=== PATIENT | female | born 1965 | race Caucasian/White ===

== ENCOUNTER 2020-04-22 08:14 | Outpatient (CLI) | payer OTHER ==
--- NOTE | 2020-04-22 09:17 | BD ---
DEXA BONE DENSITY STUDY: Date: 04/22/2020 HISTORY: Postmenopausal. FINDINGS: Lumbar Spine: BMD (g/cm2) L1 1.023 T-Score: +0.3 L2 1.173 T-Score: +1.3 L3 1.164 T-Score: +0.7 L4 1.210 T-Score: +1.3 Total 1.146 T-Score: +0.9 Left Femoral Neck: 0.820 T-Score: -0.2 Total Femur: 1.017 T-Score: +0.6 IMPRESSION: Normal bone mineral density of the lumbar spine and left femoral neck. POS: OFF
== END 2020-04-22 08:15 | disposition home or self-care (01) ==
LOC: BICMAMMO 08:14
PROVIDERS: ATTEND Obstetrics & Gynecology
DX: Z13.820 Encounter for screening for osteoporosis (principal)
CPT/HCPCS: 77080

== ENCOUNTER 2023-03-21 13:29 | Outpatient (CLI) | payer OTHER | END 2023-03-21 13:30 | disposition home or self-care (01) | LOC: BICMAMMO 13:29 | PROVIDERS: ATTEND Nurse Practitioner Family | DX: R92.1 Mammographic calcification found on diagnostic imaging of breast (principal) | CPT/HCPCS: G0279 ==

== ENCOUNTER → 2023-04-18 | Day surgery (SDC) | payer BC | LOC: MAMMO 07:07 | PROVIDERS: ATTEND Nurse Practitioner Family | PROC: 0H95XZX Drainage of Chest Skin, External Approach, Diagnostic (ICD-10-PCS; principal; 2023-04-18) | DX: R92.8 Other abnormal and inconclusive findings on diagnostic imaging of breast (principal); D05.11 Intraductal carcinoma in situ of right breast | CPT/HCPCS: 19081; 76098; 88305; 88341; 88342; A4648 ==

== ENCOUNTER 2023-05-25 06:39 | Day surgery (SDC) | payer BC ==
[2023-05-16 12:48] VITALS: BMI 21.7
[2023-05-25] MEDS ORDERED: Methylene Blue 50 MG/10 ML AMPUL ONE (09:48)
[2023-05-25] MEDS ORDERED: Lidocaine 2% PF 5 ML VIAL ONE (09:49)
[2023-05-25] MEDS ORDERED: EPINEPHrine 1 MG/ML VIAL ONE (09:49)
[2023-05-25] MEDS ORDERED: Bupivacaine 0.25% HCL 30 ML VIAL ONE (09:49)
[2023-05-25 10:14] LABS: #Eosinphils 0.1 thou/uL (0.0-0.7); #Monocytes 0.4 thou/uL (0.11-0.59); #Neutrophils 3.2 thou/uL (1.40-6.50); %Basophils 0.4 % (0.0-1.0); %Eosinophils 2.5 % (0.0-10.0); %Lymphocytes 32.8 % (21.0-51.0); %Monocytes 7.8 % (0.0-10.0); %Neutrophils 56.3 % (42.0-75.0); Hematocrit 40.9 % (36.0-47.0); Hemoglobin 13.4 g/dL (12.0-16.0); Mean Corpuscular HGB CONC 32.8 g/dL (32.0-36.0); Mean Corpuscular Hemoglobin 30.4 pg (27.0-31.0); Mean Corpuscular Volume 92.7 fl (78.0-98.0); Mean Platelet Volume 11.3 fL (7.4-10.4); Platelet Count 337 10x3/uL (130-400); RBC Distribution Width 12.7 % (11.5-14.5); Red Blood Cell (RBC) Count 4.41 mill/uL (4.20-5.40); White Blood Cell (WBC) Count 5.7 10x3/uL (4.8-10.8)
[2023-05-25 10:29] LABS: Anion Gap 13 mmol/L (10-20); BUN (Urea Nitrogen) 9 mg/dL (9.8-20.1); Calc. Creatinine Clearance 80 mL/min (70-130); Calcium 9.7 mg/dL (7.8-10.44); Carbon Dioxide 27 mmol/L (22-29); Chloride 105 mmol/L (98-107); Estimated GFR 94; Glucose 100 mg/dL (70-105); Potassium 3.8 mmol/L (3.5-5.1); Sodium 141 mmol/L (136-145)
[2023-05-25] MEDS ORDERED: PROPOFOL 20 ML ONE (10:45)
[2023-05-25] MEDS ORDERED: fentaNYL 50 mcg/mL 1 mL Vial ONE ×2 (10:45→12:36)
[2023-05-25] MEDS ORDERED: Lidocaine 1% PF 5 ML VIAL ONE ×2 (10:46→11:14)
[2023-05-25] MEDS ORDERED: CEFAZOLIN 2 GM VIAL ONE (10:55)
[2023-05-25] MEDS ORDERED: Sodium Chloride 0.9% 100 ML ONE (10:55)
[2023-05-25] MEDS ORDERED: Ondansetron PF 4 MG/2 ML Vial ONE ×2 (11:14→11:21)
[2023-05-25] MEDS ORDERED: PROPOFOL 200 MG/20 ML VIAL ONE (11:14)
[2023-05-25] MEDS ORDERED: Dexamethasone 20 MG/5 ML VIAL ONE ×2 (11:14→11:21)
== END 2023-05-25 13:58 | disposition home or self-care (01) ==
LOC: MAMMO 06:39
PROVIDERS: ATTEND Surgery
PROC: 0HBT0ZZ Excision of Right Breast, Open Approach (ICD-10-PCS; principal; 2023-05-25)
PROC: 07B50ZZ Excision of Right Axillary Lymphatic, Open Approach (ICD-10-PCS; principal; 2023-05-25)
DX: C50.411 Malignant neoplasm of upper-outer quadrant of right female breast (principal); F17.200 Nicotine dependence, unspecified, uncomplicated
CPT/HCPCS: 19281; 76098; 78195; 80048; 85025; 88307; 88341; 88342; A9541; J0171; J0665; J1100; J2001; J2405; J2704; J3010; J3490; Q9968

== ENCOUNTER 2023-06-10 12:17 | Day surgery (SDC) | payer BC ==
[2023-06-09 08:59] VITALS: BMI 21.7
[2023-06-10] MEDS ORDERED: EPINEPHrine 1 MG/ML VIAL ONE (14:48)
[2023-06-10] MEDS ORDERED: Bupivacaine 0.25% HCL 30 ML VIAL ONE (14:48)
[2023-06-10] MEDS ORDERED: Midazolam HCl 2 mg/2 ml Vial ONE (14:49)
[2023-06-10] MEDS ORDERED: PROPOFOL 20 ML ONE (15:00)
[2023-06-10] MEDS ORDERED: Lidocaine 1% PF 5 ML VIAL ONE (15:00)
[2023-06-10] MEDS ORDERED: fentaNYL PF 100 MCG/2 ML SYRINGE ONE (15:00)
[2023-06-10] MEDS ORDERED: CEFAZOLIN 2 GM VIAL ONE (15:02)
[2023-06-10] MEDS ORDERED: Sodium Chloride 0.9% 100 ML ONE (15:02)
[2023-06-10] MEDS ORDERED: PHENYLEPHRINE-NS 100 MCG/ML 10 ML SYRINGE ONE (15:21)
[2023-06-10] MEDS ORDERED: Dexamethasone 4 mg/ml Vial ONE (15:33)
[2023-06-10] MEDS ORDERED: Ondansetron PF 4 MG/2 ML Vial ONE (15:33)
[2023-06-10] MEDS ORDERED: Ketorolac Tromethamine 30 MG (1 mL) VIAL ONE (15:33)
[2023-06-10] MEDS ORDERED: HYDROcodone/Acetaminophen 5/325 mg Tablet ONE (16:57)
== END 2023-06-10 17:25 | disposition home or self-care (01) ==
LOC: SDC 12:17
PROVIDERS: ATTEND Surgery
PROC: 0HBT0ZZ Excision of Right Breast, Open Approach (ICD-10-PCS; principal; 2023-06-10)
DX: F17.200 Nicotine dependence, unspecified, uncomplicated (principal); Z91.048 Other nonmedicinal substance allergy status; C50.911 Malignant neoplasm of unspecified site of right female breast
CPT/HCPCS: 88307; J0171; J0665; J1100; J1885; J2250; J2405; J2704; J3490

== ENCOUNTER 2024-06-08 13:09 | Outpatient (CLI) | payer BC | END 2024-06-08 13:10 | disposition home or self-care (01) | LOC: BICMAMMO 13:09 | PROVIDERS: ATTEND Surgery | DX: Z86.000 Personal history of in-situ neoplasm of breast (principal) | CPT/HCPCS: 77066; G0279 ==